=== PATIENT | female | born 1940 | race Caucasian/White ===

== ENCOUNTER 2018-03-02 08:28 | Day surgery (SDC) | payer OTHER ==
[2018-03-02] MEDS: BETADINE OPTH PREP OP PRN ×2 (09:55→10:58)
[2018-03-02] MEDS: TETRACAINE 0.5% UNIT-DOSE OP PRN ×2 (09:55→10:57)
[2018-03-02] MEDS: CYCLOGYL 2% OPTH OP PRN ×3 (09:55→10:05)
[2018-03-02] MEDS ORDERED: BRIMONIDINE TARTRATE 0.2% OPTH SOL OP PRN (10:01)
[2018-03-02] MEDS ORDERED: DEX-MOXI-KETOR OPTH INJ 1/0.5/0.4 MG/ML IO ONE (10:01)
[2018-03-02] MEDS ORDERED: LIDOCAINE 1% 20 ML MDV ID STA (10:01)
[2018-03-02] MEDS ORDERED: ZOFRAN 4 MG/2 ML IVP ONE (10:01)
[2018-03-02] MEDS ORDERED: LIDOCAINE 1%/PHENYLEPHRINE 1.5% BSS (SURGERY) INTRAOCULA ONE (10:01)
[2018-03-02] MEDS ORDERED: BSS WITH EPINEPHRINE OP ONE (10:01)
[2018-03-02] MEDS ORDERED: SUBLIMAZE ONE (11:00)
[2018-03-02] MEDS ORDERED: VERSED ONE (11:00)
[2018-03-02] MEDS ORDERED: TORADOL ONE (11:00)
[2018-03-02] MEDS ORDERED: DECADRON 4 MG/ML SDV ONE (11:00)
[2018-03-02] MEDS ORDERED: MIOCHOL-E INTRAOCULA ONE (11:30)
[2018-03-03 13:51] VITALS: BP 129/67; TEMP 98.6
--- NOTE | 2018-03-03 14:42 | OP ---
DATE OF PROCEDURE: 03/02/18 PREOPERATIVE DIAGNOSIS: DENSE BRUNESCENT CATARACT, RIGHT EYE POSTOPERATIVE DIAGNOSIS: Same PROCEDURE PERFORMED: 1. EXTRACAPSULAR CATARACT EXTRACTION BY PHACO EMULSIFICATION WITH PLACEMENT OF POSTERIOR CHAMBER INTRAOCULAR LENS IMPLANT, RIGHT EYE. 2. ANTERIOR VITRECTOMY, RIGHT EYE SURGEON: DR. GENEVIEVE AVILES ANESTHESIA:: TOPICAL WITH MAC ANESTHESIOLOGIST: SCOTTIE GREENE CIRCULATING NURSE: KOBE NGUYEN AND KAELA MURPHY SCRUB NURSE: JASE OATES COMPLICATIONS: POSTERIOR CAPSULAR TEAR REQUIRING ANTERIOR VITRECTOMY TECHNIQUE: The patient was taken to the operating room and placed in a supine position. The operative eye was prepped and draped in a routine sterile fashion. One drop of 5% Betadine solution was applied to the operative eye. The microscope was positioned over the patient. A drop of topical Tetracaine was applied to the operative eye again and a lid speculum was placed in the operative eye. A temporal clear corneal incision was made into the anterior chamber with a Jeanne Keratome Blade. Lidocaine 1% Phenylephrine Hydrochloride 1.5% was injected into the anterior chamber followed with Viscoelastic material. A paracentesis stab incision was made using a disposable blade. A continuous curvilinear capsulorrhexis was performed with forceps followed by hydrodissection. The prechopper was used to disassemble the nucleus partially. Phacoemulsification of lens material was performed followed by aspiration of the lens cortical material. The Phaco time was 15.84. Posterior and anterior capsules were polished with an irrigating capsular polisher. Viscoelastic material was injected into the intact capsular bag and a 24.0 Diopter SN60 WF intraocular lens was injected into the capsular bag without difficulty. During rotation of the lens implant, a posterior capsular tear was noted. A small amount of vitreous did present through the posterior capsular tear. A bimanual anterior vitrectomy was performed. The intraocular lens appeared stable on the remaining posterior capsule. Therefore , the lens was left in place. Irrigation and aspiration was used to remove the remaining viscoelastic material from the eye. Miochol was injected into the anterior chamber, the pupil came down nicely and was round. A 0.4 mL of Dex- Moxi was injected into the anterior chamber. ReSure sealant was applied to the temporal corneal incision. Even with the ReSure sealant, the temporal corneal incision did not seem to be watertight. Therefore, one interrupted 10-0 nylon suture was placed to close the temporal corneal incision. A temporal corneal incision and paracentesis site were checked and found to be watertight and free of vitreous. The lid speculum was removed. Antibiotic and antiinflammatory drops were applied to the operative eye. The patient tolerated the procedure well and was discharged to the recovery room in good condition. ALIZE
== END 2018-03-02 12:10 | disposition home or self-care (01) ==
LOC: SURG 08:28
PROVIDERS: ATTEND Ophthalmology
DX: H25.11 Age-related nuclear cataract, right eye (principal)

== ENCOUNTER 2018-03-16 09:13 | Day surgery (SDC) ==
[2018-03-16] MEDS: BETADINE OPTH PREP OP PRN ×2 (10:50→11:15)
[2018-03-16] MEDS: TETRACAINE 0.5% UNIT-DOSE OP PRN ×3 (10:50→11:27)
[2018-03-16] MEDS: CYCLOGYL 2% OPTH OP PRN ×3 (10:51→11:01)
[2018-03-16] MEDS ORDERED: BRIMONIDINE TARTRATE 0.2% OPTH SOL OP PRN (10:55)
[2018-03-16] MEDS ORDERED: ZOFRAN 4 MG/2 ML IVP ONE (10:55)
[2018-03-16] MEDS ORDERED: LIDOCAINE 1% 20 ML MDV ID STA (10:55)
[2018-03-16] MEDS ORDERED: BSS WITH EPINEPHRINE OP ONE (10:55)
[2018-03-16] MEDS ORDERED: DEX-MOXI-KETOR OPTH INJ 1/0.5/0.4 MG/ML IO ONE (10:55)
[2018-03-16] MEDS ORDERED: LIDOCAINE 1%/PHENYLEPHRINE 1.5% BSS (SURGERY) INTRAOCULA ONE (10:55)
[2018-03-16] MEDS ORDERED: SUBLIMAZE ONE (11:18)
[2018-03-16] MEDS ORDERED: DIPRIVAN 20 ML VIAL IVP ONE (11:18)
[2018-03-16] MEDS ORDERED: TORADOL ONE (11:18)
[2018-03-16] MEDS ORDERED: ZOFRAN 4 MG/2 ML ONE (11:18)
[2018-03-16] MEDS ORDERED: DECADRON 4 MG/ML SDV ONE (11:18)
[2018-03-16] MEDS ORDERED: MIOCHOL-E INTRAOCULA ONE (11:45)
[2018-03-16 13:09] VITALS: TEMP 97.6
[2018-03-21 09:31] VITALS: BP 134/56
== END 2018-03-16 12:30 | disposition home or self-care (01) ==
LOC: SURG 09:13
PROVIDERS: ATTEND Ophthalmology
DX: H25.12 Age-related nuclear cataract, left eye (principal)